=== PATIENT | male | born 1995 | race Hispanic/Latino ===

== ENCOUNTER 2017-12-23 21:27 | Emergency (ER) | payer OTHER, SELFPAY ==
[2017-12-23] MEDS ORDERED: LIDOCAINE HCL-MPF 1% 2ML VIAL ONE (22:21)
[2017-12-23] MEDS ORDERED: CEFTRIAXONE SODIUM 1 GM ONE (22:21)
[2017-12-23] MEDS ORDERED: AZITHROMYCIN 250 MG TABLET PO ONE (22:22)
[2017-12-23] MEDS ORDERED: TETANUS/DIPHTHERIA TOXOID [ADULT] 0.5 ML VIAL IM ONE (22:24)
== END 2017-12-23 23:19 | disposition home or self-care (01) ==
LOC: EDH 21:27
DX: S41.152A Open bite of left upper arm, initial encounter (principal); W54.0XXA Bitten by dog, initial encounter; Y93.89 Activity, other specified; Y92.89 Other specified places as the place of occurrence of the external cause; Y99.8 Other external cause status
CPT/HCPCS: 90471; 90714; 96372; 99284; J0696; J3490